=== PATIENT | female | born 1965 | race Hispanic/Latino ===

== ENCOUNTER → 2017-04-09 | Outpatient (CLI) | payer OTHER ==
[~2017-04-09] MED LIST: IOPAMIDOL 370 MG/ML 200 ML INFUS..BTL INJ ONE; SODIUM CHLORIDE 0.9% 50ML 50 ML ONE
--- NOTE | 2017-04-09 15:42 | Diagnostic Imaging Report ---
PROCEDURE: CT ABDOMEN \T\ PELVIS W/WO CONTRAST COMPARISON:CT abdomen/pelvis 01/10/2013 INDICATIONS:LEFT RENAL MASS TECHNIQUE: Axial CT images through the abdomen and pelvis were obtained before and after the intravenous administration of 100 cc of nonionic contrast. Coronal and sagittal reformations were created. DLP: 704.9 mGy-cm FINDINGS: Right kidney: No renal calculus, cortical mass or hydronephrosis. There is normal enhancement of the parenchyma. No hydronephrosis or filling defect in the collecting system. Left kidney: No renal calculus. A unilocular cyst arising from the upper pole measures 7.3 x 8.5 x 8.2 cm. There is no mural thickening or calcifications in the wall. No enhancing components. In 2013, this measured 6.2 x 7.4 x 8.0 cm. In no hydronephrosis or filling defect in the collecting system. Bladder/ureters: The ureters are normal in diameter throughout their course. The opacified portions of the ureters demonstrate no evidence of intrinsic or extrinsic filling defects. The bladder is well-opacified and appears normal. Liver: Normal attenuation. No evidence of mass. Spleen: Normal attenuation. No evidence of mass. Biliary: The gallbladder is present and filled with multiple peripherally calcified gallstones measuring up to 15 mm. No gallbladder wall thickening or biliary ductal dilatation. Pancreas: Normal attenuation without mass or ductal dilatation. Adrenal Glands: No evidence of mass Vasculature: The aorta is normal in diameter. Single artery supplying each kidney. The celiac artery and its branches are normal. GI: The stomach is normal. The small bowel in diameter wall thickness. The large bowel is normal in diameter wall thickness. No evidence of diverticula. The appendix is normal. Peritoneum/Retroperitoneum: No lymphadenopathy, free fluid, or fluid collection. Reproductive organs: The uterus is present and normal in morphology. There are no adnexal masses. MSK: Mild degenerative changes of the lower thoracic spine. Lung bases: Small subsegmental focus of atelectasis in the posterior basal segment of the right lower lobe. Visualized portion of the mediastinum is normal. CONCLUSION: 1. Enlarging but simple appearing cyst in the left kidney. 2. Cholelithiasis. Normal biliary tree. Dictated by: Windy Conn M.D. on 04/09/2017 at 15:50 Electronically approved by: Windy Conn M.D. on 04/09/2017 at 15:50
--- NOTE | 2017-04-14 16:20 | Diagnostic Imaging Report ---
#[id number] - MGSCRBIL #BILATERAL DIGITAL SCREENING MAMMOGRAM WITH CAD: 04/09/2017 CLINICAL: Routine screening. Comparison is made to exams dated: 02/25/2016 mammogram, 01/30/2014 mammogram and 10/31/2010 mammogram - [facility]. Current study contains 5 films. There are scattered fibroglandular elements in both breasts. Current study was also evaluated with a Computer Aided Detection (CAD) system. There are benign calcifications in both breasts. No significant masses, calcifications, or other findings are seen in either breast. There has been no significant interval change. IMPRESSION: BENIGN There is no mammographic evidence of malignancy. A 1 year screening mammogram is recommended. The patient will be notified by letter of the results. Dionicio duckworth/gege:04/14/2017 13:15:24 Family And Marriage Counsellor: Shyann AIKEN(R)(M), [facility] letter sent: Compared to Prior B9 Mammogram BI-RADS: 2 Benign
== END ==
LOC: CT 13:01
PROVIDERS: ATTEND Specialist
DX: Z12.31 Encounter for screening mammogram for malignant neoplasm of breast (principal); M81.0 Age-related osteoporosis without current pathological fracture; Z78.0 Asymptomatic menopausal state
CPT/HCPCS: 74178; G0202; Q9967

== ENCOUNTER → 2017-04-16 | Outpatient (CLI) | payer OTHER ==
--- NOTE | 2017-04-19 12:11 | Diagnostic Imaging Report ---
EXAM: Bone mineral density study 04/16/2017 4:06 PM INDICATION: Osteoporosis. COMPARISON: Previous DEXA 02/25/2016. Baseline DEXA 01/30/2014 FINDINGS: Evaluation of the left hip and lumbar spine was performed. The study is technically adequate. The patient's fracture risk is compared to an age-matched control. The left femoral neck total bone mineral density is 0.612 gm/cm2, the T-score is -2.2 and the total Z-score is -1.2. The total left hip bone mineral density is 0.797 gm/cm2, the T-score is -1.2 and the total Z-score is -0.5. The total left hip BMD change versus baseline is -6.1% and the BMD change versus previous is -0.9% . The lumbar spine total bone mineral density is 0.671 gm/cm2, the T-score is -3.4, and the Z-score is -2.4. The lumbar spine BMD change versus baseline is -2.8% and the BMD change versus previous is -0.5% . IMPRESSION: Bone mineralization by WHO Classification is osteoporosis, the fracture risk is high. Signed by: Dr. Vladimir Tejada MD on 04/19/2017 12:07 PM
== END ==
LOC: DX 15:54
PROVIDERS: ATTEND Specialist
DX: M81.0 Age-related osteoporosis without current pathological fracture (principal); N95.1 Menopausal and female climacteric states
CPT/HCPCS: 77080

== ENCOUNTER → 2018-05-05 | Outpatient (CLI) | payer OTHER ==
--- NOTE | 2018-05-05 17:05 | Diagnostic Imaging Report ---
Exam: Bone mineral density study. History: Osteoporosis Comparison: Baseline January 30, 2014, most recent April 16, 2017. Discussion: Evaluation of the left hip and lumbar spine was performed. The study is technically adequate. The patient's fracture risk is compared to an age-matched control. The patient denies prior surgery/fracture of the spine, hips or forearm. Left hip femoral neck bone mineral density: 0.6 g/cm2, T-score is -2.1, Z-score is -1. Left hip total bone mineral density: 0.8 g/cm2, T-score is -1.3, Z-score is -0.5. Lumbar spine total bone mineral density: 0.7 g/cm2, T-score is -3.3, Z-score is -2.2. Impression: 1. Bone mineralization by WHO Classification is osteoporosis, the fracture risk is high. 2. Consider evaluation for secondary causes of bone demineralization. 3. A 6.7% decrease in the left hip bone mineral density since January 30, 2014. Signed by: Dr. Micheal Mota D.O., M.M.M. on 05/05/2018 5:02 PM
== END ==
LOC: MAMMO 15:38
PROVIDERS: ATTEND Specialist
DX: Z12.31 Encounter for screening mammogram for malignant neoplasm of breast (principal); M81.0 Age-related osteoporosis without current pathological fracture
CPT/HCPCS: 77067; 77080